=== PATIENT | male | born 1990 | race Caucasian/White ===

== ENCOUNTER 2021-11-05 10:43 | Outpatient (CLI) | payer OTHER ==
--- NOTE | 2021-11-06 07:57 | XRay Report ---
RIGHT HIP 2 VIEWS INDICATION: M25.551 PAIN IN RIGHT HIP. COMPARISON: None. IMPRESSION: No acute osseous or soft tissue abnormality. No significant DJD. No osteonecrosis. Signer Name: Evan Pina Jr, MD Signed: 11/06/2021 7:53 AM Workstation Name: [id number]
== END 2021-11-05 10:44 | disposition home or self-care (01) ==
LOC: XRAY 10:43
PROVIDERS: ATTEND Internal Medicine
DX: M25.551 Pain in right hip (principal)

== ENCOUNTER 2022-01-08 15:19 | Emergency (ER) | payer OTHER ==
--- NOTE | 2022-01-08 17:39 | Emergency Department Report ---
ED General Adult HPI - General Chief complaint: High BP Stated complaint: HIGH BP Time Seen by Provider: 01/08/22 17:01 Source: patient Mode of arrival: Ambulatory Limitations: No Limitations - History of Present Illness Initial comments: This is a 31-year-old male nontoxic, well nourished in appearance, no acute signs of distress presents to the ED for concerns of hypertension. Patient stated he currently takes losartan and does follow-up with her primary care doctor. Patient stated he missed a dose and prior to arrival his blood pressure was elevated which then he took his losartan and currently in the ER his blood pressure is within normal limits. Patient otherwise denies any symptoms or complaints. Patient denies any chest pain, shortness of breath, fever, chills, nausea, vomiting, headache or stiff neck. Severity scale (0 -10): 0 Improves with: none Worsens with: none Associated Symptoms: denies other symptoms. denies: confusion, chest pain, cough, diaphoresis, fever/chills, headaches, loss of appetite, malaise, nausea/vomiting, rash, seizure, shortness of breath, syncope, weakness ED Review of Systems ROS: Stated complaint: HIGH BP Other details as noted in HPI Comment: All other systems reviewed and negative Constitutional: denies: chills, fever Eyes: denies: eye pain, eye discharge, vision change ENT: denies: ear pain, throat pain Respiratory: denies: cough, shortness of breath, wheezing Cardiovascular: denies: chest pain, palpitations Endocrine: no symptoms reported Gastrointestinal: denies: abdominal pain, nausea, diarrhea Genitourinary: denies: urgency, dysuria Musculoskeletal: denies: back pain, joint swelling, arthralgia Skin: denies: rash, lesions Neurological: denies: headache, weakness, paresthesias Psychiatric: denies: anxiety, depression Hematological/Lymphatic: denies: easy bleeding, easy bruising ED Past Medical Hx - Past Medical History Previous Medical History?: Yes Hx Hypertension: Yes (MEDICATED) Hx Diabetes: Yes (DMII) - Surgical History Past Surgical History?: No - Social History Smoking Status: Never Smoker Substance Use Type: None ED Physical Exam - General Limitations: No Limitations General appearance: alert, in no apparent distress - Head Head exam: Present: atraumatic, normocephalic - Eye Eye exam: Present: normal appearance - Neck Neck exam: Present: normal inspection, full ROM. Absent: lymphadenopathy - Respiratory Respiratory exam: Absent: respiratory distress - Cardiovascular Cardiovascular Exam: Present: regular rate - Extremities Exam Extremities exam: Present: full ROM - Back Exam Back exam: Present: full ROM - Neurological Exam Neurological exam: Present: alert, oriented X3, normal gait - Psychiatric Psychiatric exam: Present: normal affect, normal mood - Skin Skin exam: Present: warm, dry, intact, normal color. Absent: rash ED Course Vital Signs 01/08/22 16:08 Temperature 98.6 F Pulse Rate 107 H Respiratory 18 Rate Blood Pressure 122/86 O2 Sat by Pulse 99 Oximetry - Reevaluation(s) Reevaluation #1: 01/08/22 17:37 Patient is speaking in full sentences with no signs of distress noted. ED Medical Decision Making - Medical Decision Making 31-year-old male that presents with hypertension concerns. Patient is stable and was examined by me. Vital signs are currently stable. According to ACEP: (1) in ED patients with asymptomatic markedly elevated blood pressure, routine screening for acute target organ injury (eg, serum creatinine, urinalysis, ECG) is not required. (1) In patients with asymptomatic markedly elevated blood pressure, routine ED medical intervention is not required. Patient was instructed to follow-up with a primary care doctor in 3-5 days or if symptoms worsen and continue return to emergency room as soon as possible. At time of discharge, the patient does not seem toxic or ill in appearance. No acute signs of distress noted. Patient agrees to discharge treatment plan of care. No further questions noted by the patient. Critical care attestation.: If time is entered above; I have spent that time in minutes in the direct care of this critically ill patient, excluding procedure time. ED Disposition Clinical Impression: HTN (hypertension) Qualifiers: Hypertension type: unspecified Qualified Code(s): I10 - Essential (primary) hypertension Disposition: 01 HOME / SELF CARE / HOMELESS Is pt being admited?: No Does the pt Need Aspirin: No Condition: Stable Instructions: Hypertension (ED) Additional Instructions: Follow-up with a primary care doctor in 3-5 days or if symptoms worsen and continue return to emergency room as soon as possible. Referrals: JOANNA BLAIR MD [Referring] - 3-5 Days LORETTA PEREZ MD [Staff Physician] - 3-5 Days Time of Disposition: 17:38
[2022-01-08 18:20] VITALS: BP 154/86
== END 2022-01-08 18:18 | disposition home or self-care (01) ==
LOC: ED 15:19
DX: I10 Essential (primary) hypertension (principal); E11.9 Type 2 diabetes mellitus without complications
CPT/HCPCS: 99282

== ENCOUNTER 2022-01-09 12:04 | Outpatient (CLI) | payer OTHER ==
--- NOTE | 2022-01-09 14:02 | XRay Report ---
RIGHT FEMUR 2 VIEWS INDICATION / CLINICAL INFORMATION: M79.651 PAIN IN RIGHT THIGH. COMPARISON: None available. FINDINGS: BONES / JOINT(S): There is no evidence of fracture, subluxation or destructive lesion. No significant arthritis. SOFT TISSUES: No significant abnormality. ADDITIONAL FINDINGS: None. IMPRESSION: No acute findings. Signer Name: Magnus Espinosa MD Signed: 01/09/2022 1:57 PM Workstation Name: [email or web address]
--- NOTE | 2022-01-09 14:03 | XRay Report ---
Lumbar spine 5 views INDICATION: Back pain FINDINGS: Alignment appears normal. No subluxation is seen. No compression fractures identified. Sacr um appears normal. Signer Name: Irving Fine MD Signed: 01/09/2022 1:59 PM Workstation Name: [id number]
== END 2022-01-09 12:05 | disposition home or self-care (01) ==
LOC: XRAY 12:04
PROVIDERS: ATTEND Internal Medicine
DX: M54.31 Sciatica, right side (principal); M79.651 Pain in right thigh
CPT/HCPCS: 72110

== ENCOUNTER 2022-01-15 09:22 | Outpatient (CLI) | payer OTHER ==
[2022-01-15 10:24] LABS: Chol/HDL Ratio 2.92 %
== END 2022-01-15 09:23 | disposition home or self-care (01) ==
LOC: LAB 09:22
PROVIDERS: ATTEND Internal Medicine
DX: E11.65 Type 2 diabetes mellitus with hyperglycemia (principal); E78.5 Hyperlipidemia, unspecified
CPT/HCPCS: 36415; 80061; 83036